=== PATIENT | male | born 1940 | race Caucasian/White ===

== ENCOUNTER 2016-11-12 08:45 | Day surgery (SDC) | payer MEDICARE ==
[2016-11-12] VITALS (23 sets, daily range): BP systolic 114–227; BP diastolic 62–114; PULSE 72–88; RESP 10–18; O2SAT 91–100
[~2016-11-12] VITALS: Ht 180.3 cm; Wt 69.5 kg
--- NOTE | 2016-11-12 08:54 | ED.REPORT ---
HPI-Facial Injury Date of Service Nov 12, 2016 ED Provider: Dionicio Sánchez Patient is a 79 year old male with a hx of hyperlipidemia who presents to the ED via EMS for intractable epistaxis onset 0730 this morning. He denies a mechanism of injury and reports it started spontaneously while he was shaving. He feels he is primarily bleeding from the L nostril. Associated symptoms include dizziness. He denies LOC, nausea, vomiting, or any other symptoms. Patient's daughter reports he has a hx of throat and tongue cancer, HTN, thyroid disease, prostate cancer, and memory problems. He takes a baby aspirin, lovastatin, and levothyroxine daily. He is not on blood thinners or medication for HTN. Daughter subsequently reports that pt has been having a few nosebleeds and headaches lately. He has not been able to see when he is driving for the past 3- 5 months due to his vision "going white." He has been seen at [facility] and is scheduled for CT. Pt's father of brain aneurysm. Nursing Notes Stated Complaint: EPISTAXIS Nursing Notes Reviewed: Yes Allergies: Coded Allergies: No Known Allergies (Unverified , 11/12/16) Scheduled Levothyroxine (Levothyroxine) 125 Mcg Tablet 125 MCG PO DAILY Lovastatin (Lovastatin) 40 Mg Tablet 40 MG PO HS Scheduled PRN Aspirin Chew (Aspirin Chew) 81 Mg Chew 81 MG PO DIRECTED PRN PRN For Pain Miscellaneous Medications Multivitamin (Once Daily) 1 Each Tablet 1 EACH PO General Time Seen by Provider: 08:54 Chief Complaint Nose bleed Hx Obtained From: Patient, EMS Arrived By: Ambulance Onset Occurred: 1 - 4 hours ago Symptom Duration: Since onset Past Medical History Past Medical History Notes: Carley Mc PCP ENT oncologist Candelario Maradiaga Past Medical History thyroid disease HTN 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 Smoking History Unknown if Ever Smoker Ambulatory Status Independent Review of Systems Ears / Nose / Throat: Reports: Nose bleeding Neurologic: Reports: Dizziness, Denies: Change LOC Complete sys rev & neg: except as marked. GI: Denies: Nausea, Vomiting Physical Exam Initial Vital Signs Vital Signs (First) Date Time Temp Pulse Resp B/P Pulse Ox O2 Delivery O2 Flow Rate FiO2 11/12/16 09:01 36.7 93 17 162/78 96 Room Air Initial VS: Reviewed, Vital signs abnormal Respiratory: No respiratory distress Cardiovascular: Regular rate & rhythm Skin: Warm, Dry Psychiatric: Mood/affect normal, Behavior normal, Normal thought content Head / Eyes: Atraumatic, Normocephalic Nose: Positive: Epistaxis left Blood in oropharynx and from nares Neck: Atraumatic, Supple, Full range of motion Neurologic: Oriented X3, Speech NL General/Constitutional: Awake, Alert Distress / Hydration: Positive: Distress mild Interpretation & Diagnostics Lab Results Interpretation Result Diagram: 11/12/16 1030 11/12/16 1030 Test 11/12/16 10:30 White Blood Count 5.9th/mm3 (3.8-10.1) Red Blood Count 4.58mil/mm3 (4.40-5.80) Hemoglobin 12.3g/dL (13.8-17.2) Hematocrit 36.7% (41.0-50.0) Mean Corpuscular Volume 80.1fL (81-100) Mean Corpuscular Hemoglobin 26.9pg (27.0-35.0) Mean Corpuscular Hemoglobin Concent 33.5% (32.0-37.0) Red Cell Distribution Width 15.5% (12.3-15.4) Platelet Count 212bil/L (150-400) Neutrophils (%) (Auto) 81.3% (40-74) Lymphocytes (%) (Auto) 8.5% (14-46) Monocytes (%) (Auto) 7.6% (4-12) Eosinophils (%) (Auto) 2.0% (0-5) Basophils (%) (Auto) 0.3% (0-3) Prothrombin Time 10.3sec (8.1-12.5) Prothromb Time International Ratio 0.96ratio Sodium Level 131mEq/L (134-144) Potassium Level 4.7mEq/L (3.5-5.2) Chloride Level 95mEq/L (97-108) Carbon Dioxide Level 24mmol/L (18-29) Blood Urea Nitrogen 19mg/dL (8-27) Creatinine 0.60mg/dL (0.76-1.27) Estimat Glomerular Filtration Rate 140mL/min (>59) Glucose Level 121mg/dL (60-99) Calcium Level 9.2mg/dL (8.5-10.1) Total Bilirubin 0.3mg/dL (0.0-1.2) Aspartate Amino Transf (AST/SGOT) 34U/L (0-50) Alanine Aminotransferase (ALT/SGPT) 21U/L (0-44) Alkaline Phosphatase 89U/L (25-160) Total Protein 6.7g/dL (6.4-8.4) Albumin 4.2g/dL (3.4-5.0) Procedures Epistaxis Management Epistaxis Management: had 7.5 cm rapid rhino in, pt ripped it out before it could be inflated. Time: 09:37 Procedure Performed by: ED physician Consent / Setup / Site Prep: Informed consent provided, Consent from patient , Time-out performed, Pulse oximeter applied, machine filler shredder applied, Hand hygiene observed, Stand sterile technique Side and Location of Bleed: Nare left - unknown Pre-medication and Procedure: Lidocaine (with epi, 1%, 2 mL), Rapid rhino inserted Post-Procedure / Complications: Bleeding unchanged Epistaxis Management: 1.5 cm rapid Rhino inserted to approximately 5 cm and inflated, no decrease in epistaxis. Time: 09:58 Procedure Performed by: ED physician Consent / Setup / Site Prep: Informed consent provided, Consent from patient , Time-out performed, Pulse oximeter applied, machine filler shredder applied, Hand hygiene observed, Stand sterile technique Side and Location of Bleed: Nare left - unknown Pre-medication and Procedure: Rapid rhino inserted Post-Procedure / Complications: No complications, Patient stable Re-Eval/Medical Decision Med Decision/Clinical Course Med Decision/Clinical Course: Ongoing epistaxis suggestive of posterior nosebleed. No relief with direct pressure via nasal clamp, Afrin nasal spray, lidocaine with epinephrine at a mild step the left snare, or a 7.5 cm rapid Rhino Ultimately the patient was taken emergently to the operating room. Source of Hx: Family Re-Evaluation/Progress #1: Time of Eval: 09:36 Re-Evaluation/Progress Note: Rechecked pt. Discussed plan for rhino rocket. Patient understands and agrees with plan. All questions addressed at this time. Re-Evaluation/Progress #2: Time of Eval: 10:09 Patient Status: Mild relief Re-Evaluation/Progress Note: Rechecked pt who is still having mild bleeding. Discussed plan to contact ENT. Re-Evaluation/Progress #3: Time of Eval: 10:47 Re-Evaluation/Progress Note: Rechecked pt. Discussed plan to go to OR. Patient understands and agrees with plan. All questions addressed at this time. Consultation #1: Referral / Consult Name: Srikanth Ivan MD Consulted With: ENT Call Returned at: 10:16 Note: Discussed pt's case. Inflat balloon more and call back. Consultation #2: Referral / Consult Name: Srikanth Ivan MD Consulted With: ENT Call Returned at: 10:47 Heat Treater Head: Will see patient, Agrees with eval, Agrees with plan, Requested OR Note: Discussed pt's case. Will take pt to OR. Counseled Regarding: Diagnosis, Need for follow-up, When/why to return to ED Discharge & Departure Impression: Primary Impression: Epistaxis Disposition: ADMITTED TO HOSPITAL Discharge Condition All VS Reviewed: Yes Condition: Stable Crit Care Except Billable Proc Time Spent: 30-74 minutes Services Performed: Patient management by me, Time spent at bedside, Reviewing test results Critical Care Notes: See NINA Flores Attestation Portions of this note were transcribed by Mac Lizarraga. I, Dr. Sánchez personally performed the history, physical exam and medical decision-making; I reviewed and confirmed the accuracy of the information in the transcribed note. Signed by: Mark Joe, 11/12/16 Dionicio Sánchez DO Nov 12, 2016 08:54 MAC LIZARRAGA Nov 12, 2016 09:01
[2016-11-12] MEDS ORDERED: Lidocaine 1%-Epi 1:100,000 20 mL Inj ONE (09:41)
[2016-11-12] MEDS ORDERED: LEVO125T6 PO (10:40)
[2016-11-12] MEDS ORDERED: ASPI81TA3 PO (10:40)
[2016-11-12] MEDS ORDERED: MULT-666 PO (10:40)
[2016-11-12] MEDS ORDERED: LOVA40TA PO (10:41)
[2016-11-12] MEDS ORDERED: EPHEDrine/NS 5 mg/mL 5 mL Syringe ONE (10:49)
[2016-11-12] MEDS ORDERED: Propofol 10,000 mCg/mL 20 mL Inj ONE (10:49)
[2016-11-12] MEDS ORDERED: Succinylcholine Chloride 20 mg/mL 5 mL Inj ONE (10:49)
[2016-11-12] MEDS ORDERED: Glycopyrrolate 0.2 MG/ML 1mL Inj ONE (10:49)
[2016-11-12] MEDS ORDERED: Ketamine 10 mg/mL 20 mL Inj ONE (10:49)
[2016-11-12] MEDS ORDERED: Ondansetron 2 mg/mL 2 mL Inj ONE (10:49)
[2016-11-12 10:51] LABS: BASOPHILS % (AUTO) 0.3 % (0-3); MONOCYTES % (AUTO) 7.6 % (4-12); Mean Corpuscular Hemoglobin 26.9 pg (27.0-35.0); Mean Corpuscular Volume 80.1 fL (81-100); NEUTROPHILS % (AUTO) 81.3 % (40-74); Platelet Count 212 bil/L (150-400)
[2016-11-12] MEDS ORDERED: Lactated Ringer's 1,000 ML IV SCH (10:51)
[2016-11-12] MEDS ORDERED: Lactated Ringer's 500 ML IV PRN (10:51)
[2016-11-12] MEDS ORDERED: MetoCLOpramide 5 mg/mL 2 mL Inj IVPUSH PRN (10:55)
[2016-11-12] MEDS ORDERED: Ondansetron 2 mg/mL 2 mL Inj IVPUSH PRN (10:55)
[2016-11-12] MEDS ORDERED: Dexamethasone 4 mg/mL Inj IVPUSH PRN (10:55)
[2016-11-12] MEDS ORDERED: Phenylephrine 10,000 mCg/mL Inj IVPUSH PRN (10:55)
[2016-11-12] MEDS ORDERED: EPHEDrine Sulfate 50 mg/mL Inj IVPUSH PRN (10:55)
[2016-11-12 10:59] LABS: INR 0.96 ratio
[2016-11-12] MEDS ORDERED: Lactated Ringer's 1,000 ML IV ONE (11:20)
[2016-11-12] MEDS ORDERED: Lidocaine 1%-Epi 1:100,000 20 mL Inj INFILTRATE ONE (11:50)
--- NOTE | 2016-11-12 12:03 | PCM.HPANE ---
Patient Data Surgeon Admitting Provider: Attending Provider:Srikanth Ivan MD Primary Care Physician:Other,Physician Other Provider: Reason for Visit Epistaxis Ht/WT & BMI Height (Feet): 5 Height (Inches): 11 Weight (Kilograms): 69.55 Body Mass Index Allergies Coded Allergies: No Known Allergies (Unverified , 11/12/16) Past Anesthesia History Anesthesia History: Denies:: Abnormal Airway, Anesthesia Reactions, Difficult Intubation, Fam Anesthesia Reaction, Fam Malignant Hypertherm, Malignant Hyperthermia Diabetes History Hx Diabetes?: No MRSA MRSA: No Medications Hypertension Medication: No Home Meds Incl Beta Roger: No Reported Medications Lovastatin 40 Mg [id number] Mg PO HS #30 TABLET Ref 0 11/12/16 Multivitamin (Once Daily)1 Each Tablet1 Each PO 11/12/16 Aspirin Chew 81 Mg Chew81 Mg PO DIRECTED PRN For Pain Ref 0 11/12/16 Levothyroxine 125 Mcg [id number] Mcg PO DAILY For Thyroid Replacement Ref 0 11/12/16 History History of ENT Problems?: Yes HEENT History: Denies:: Abnormal Airway Cataracts Difficult Intubation Dysphagia Glaucoma Hearing Problem Sinus Problem TMJ Denture Type: Full- Upper Full- Lower Teeth Condition: Within Normal Limits Other History/Comment history of tongue cancer, s/p resection and radiation Hx of Heart Problems?: No Cardiovascular History: Denies:: AICD Abdominal Aortic Aneurism Atrial Fibrillation Cardiac Surgery Chest Pain Congestive Heart Failure Coronary Artery Disease Edema Heart Murmur Hypertension Irregular Heartbeat Pacemaker Peripheral Vascular Rheumatic Fever Thrombophlebitis Valvular Heart Disease Hx of Respiratory Problem?: No Respiratory History: Denies:: Asthma COPD Chest Surgery Cough Dyspnea Emphysema Hemoptysis Oxygen Administration Pneumonia Pulmonary Embolism Tuberculosis Use of C-PAP Machine Use of Inhalers / NEBS Hx Neurologic Problems?: No Hx of GI Problems?: No Hx of Problems?: No HX of Peritoneal Dialysis: No Hx Musculoskeletal Problems?: No Hx of Psycho/Social Problems?: No Hx Surgeries?: Yes (HERNIA, CANCER BACK OF TONGUE) Hx Any Other Health Problems?: No Hx Diabetes: No Hx Alcohol Use: NoHx Substance Use: No Smoking Status: Unknown if Ever Smoker Stop/Bang Risk Assessment Category Category 1A: Patient has history of documented sleep apnea, and HAS NOT received any narcotic, sedative or anesthesia administration during this stay. Category 1B: Patient has history of documented sleep apnea, and HAS received any narcotic , sedative or anesthesia administration during this stay Category 2: Patient has SUSPECTED Obstructive Sleep Apnea, and HAS received any narcotic , sedative or anesthesia administration during this stay. Category 3: Patient has SUSPECTED Obstructive Sleep Apnea and HAS NOT received narcotic, sedative or anesthesia administration during this stay. Category 4: Outpatient in Procedural Areas with known sleep apnea or who screen positive for High Risk via the STOP/BANG questionnaire. Exam Exam Vital Signs Vital Signs Date Time Temp Pulse Resp B/P Pulse Ox O2 Delivery O2 Flow Rate FiO2 11/12/16 09:01 36.7 93 17 162/78 96 Room Air General Appearance: Alert HEENT/AIRWAY: MP 2, Neck Movement (from, 2.5 fb) Lungs: Clear to Auscultation Heart: Regular Rate/Rhythm Meds/Labs/Diagnostics Admission Meds Current Medications Oxymetazoline HCl (Afrin 0.05% Nasal [place]) 2 spray ONCE ONCE NASAL Last administered on 11/12/16 09:05; Start 11/12/16 at 08:55; Stop 11/12/16 at 08:56; Status DC Oxymetazoline HCl (Afrin 0.05% Nasal [place]) 120 spray STK-MED ONCE .ROUTE Last administered on 11/12/16 09:05; Start 11/12/16 at 08:55; Stop 11/12/16 at 08:56; Status DC Lidocaine/ Epinephrine (Xylocaine 1%-Epinephrine 1:100,000 Inj) 1 ml STK-MED ONCE .ROUTE Last administered on 11/12/16 09:47; Start 11/12/16 at 09:41; Stop 11/12/16 at 09:43; Status DC Labs Test 11/12/16 10:30 Plan Impression Patient chart reviewed, patient interviewed and anesthestic plan with risks, benefits, and alternatives discussed, and informed consent obtained. NPO per Anesth. Guidelines: Yes ASA Physical Status: ASA2 Plus Emergency Anesthetic Support Modalities: [place] Scope, Fiberoptic Scope Anesthetic Plan: GA Bene/Risks/Altern/Consents: Yes HP Complete Prior to Induction: Yes Other Discussed GETA with possible awake fiberoptic intubation with patient and his daughter. All questions were answered and they agree to proceed. Rajat Malhotra MD Nov 12, 2016 10:51
--- NOTE | 2016-11-12 12:30 | PCM.ANEP1 ---
Post Anesthesia PACU Phase 1 Assessment Vital Signs Vital Signs Date Time Temp Pulse Resp B/P Pulse Ox O2 Delivery O2 Flow Rate FiO2 11/12/16 09:01 36.7 93 17 162/78 96 Room Air Anesthetic Administered: GA Level of Alertness: Awake, talking OJEDA's with Equal Strength: Yes Pain: No Nausea or Vomiting: No CV Function & Hydration Stable: Yes Airway Device: Oxygen Delivery: Simple Mask Lungs: Clear to Auscultation PACU Phase 2 Assessment Complications: No Follow up Care: N/A Patient Instructions Provided: N/A Rajat Malhotra MD Nov 12, 2016 12:30
[2016-11-12] MEDS: fentaNYL-PF 50 mCg/mL 2 mL Inj IVPUSH PRN ×3 (12:38→14:21)
[2016-11-12] MEDS: HYDROmorphone 1 mg/mL Inj IVPUSH PRN ×2 (13:02→13:36)
--- NOTE | 2016-11-12 13:10 | HP ---
[address] [address] HISTORY AND PHYSICAL PATIENT: LORI LEDESMA : 1940 MR#: [id number] ADMIT: 11/12/2016 JOB ID: [id number] ADMISSION HISTORY: The patient is a 76-year-old gentleman who approximately five hours prior to surgery had sudden onset of brisk left-sided epistaxis. This was unable to be controlled in the emergency department despite aggressive balloon tamponade. The patient had no prior history of similar problems. No history of trauma. No history of sinusitis or sinus infection. The patient does take aspirin daily. No other anticoagulant medications. 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 PHYSICAL EXAMINATION: The patient is in the bed in the emergency department with a dilated balloon in the left nasal cavity with active bleeding both anteriorly and posteriorly. He is awake and alert. Communicative. His chest is clear to auscultation and percussion. Cardiovascular examination: Regular rate and rhythm without murmurs, gallops or rubs. ASSESSMENT: Uncontrolled left epistaxis. PLAN: I have discussed with the patient and his daughter taking him to the operating room for endoscopic control of the sphenopalatine anterior ethmoid artery. They understand he may require external incisions and surgical clip placement. The material risks were reviewed including, but not limited to anesthesia, , bleeding, infection, blindness, CSF leak, diplopia. Also possibility of being unable to adequately control the bleeding. Their questions were answered. They are ready to proceed.
[2016-11-12] MEDS ORDERED: hydrALAZINE 20 mg/mL Inj ONE (13:22)
--- NOTE | 2016-11-12 13:34 | OP ---
[address] [address] OPERATIVE REPORT PATIENT: LORI LEDESMA : 1940 MR#: [id number] ADMIT: 11/12/2016 JOB ID: [id number] DATE OF SURGERY: 11/12/2016 SURGEON: Srikanth Ivan M.D. PREOPERATIVE DIAGNOSIS(ES): Left epistaxis. POSTOPERATIVE DIAGNOSIS(ES): Left epistaxis. PROCEDURE: Control of left epistaxis with anterior ethmoid and sphenopalatine artery ablation. HISTORY AND INDICATIONS: A 76-year-old gentleman with sudden onset of severe left-sided epistaxis uncontrolled by balloon tamponade. PROCEDURE AND FINDINGS: Taken to the operative room, placed supine position on the operating table. General endotracheal anesthesia was induced. Face prepped and draped in a sterile fashion. The balloon was deflated and removed from the left nasal cavity. Clot and blood was suctioned from the nose. The nose was then packed with Afrin on cotton. After allowing adequate time for the vasoconstrictive effect, the packing was removed. A 0 degree scope was inserted. There is active bleeding from the anterior ethmoid area. This area is packed again. The scope was then passed into the nasopharynx and brought slowly anteriorly. The area of the sphenopalatine artery was identified. With a Brandon elevator, the mucosa was elevated off of the sphenopalatine. Then with suction cautery, the vessel and branches are ablated. The packing is then removed from the anterior ethmoid area. There is active arterial bleeding from this area. Again with suction cautery, this was controlled. The nasofrontal duct is visualized and remains uninjured. Surgicel is packed into the anterior ethmoid area. A trimmed Felipe Merocel pack is then placed into the middle meatus up against the treated area. The patient is awakened and extubated in the operative room, returned to the recovery room in good condition. ESTIMATED BLOOD LOSS: 50 cc intraoperative. PATHOLOGIC SPECIMENS: None. COMPLICATIONS: None.
[2016-11-12] MEDS ORDERED: Labetalol 5 mg/mL 4 mL Inj IV PRN (13:35)
[2016-11-12] MEDS ORDERED: hydrALAZINE 20 mg/mL Inj IVPUSH PRN (13:35)
[2016-11-12] MEDS ORDERED: HYDROcodone-APAP 5-325 mg Tablet PO ONE (15:34)
== END 2016-11-12 23:59 | disposition home or self-care (01) ==
LOC: EDBD 08:45 → SED 08:45 → SOUO 10:48
PROVIDERS: ATTEND Otolaryngology Facial Plastic Surgery
PROC: 0W3Q8ZZ Control Bleeding in Respiratory Tract, Via Natural or Artificial Opening Endoscopic (ICD-10-PCS; principal; 2016-11-12 11:00)
DX: R04.0 Epistaxis (principal); Z85.810 Personal history of malignant neoplasm of tongue; Z92.3 Personal history of irradiation; Z92.21 Personal history of antineoplastic chemotherapy
CPT/HCPCS: 30901; 31238; 36415; 80053; 85025; 85610; 86850; 99285; J0330; J0360; J1170; J2250; J2405; J2704; J3010; J7120